=== PATIENT | male | born 1960 | race Caucasian/White ===

== ENCOUNTER → 2024-02-01 | Outpatient (CLI) | payer SELFPAY ==
[2024-02-01 09:18] LABS: BASOPHILS ABSOLUTE AUTO 0.07 K/mm3 (0.00-0.23); BASOPHILS PERCENT AUTO 1 % (0-2); EOSINOPHILS ABSOLUTE AUTO 0.08 K/mm3 (0.00-0.68); EOSINOPHILS PERCENT AUTO 1 % (0-6); Hematocrit 44.2 % (37.0-53.0); IMMATURE GRAN ABSOLUTE AUTO 0.02 K/mm3 (0.00-0.10); IMMATURE GRAN PERCENT AUTO 0 % (0-1); LYMPHOCYTES ABSOLUTE AUTO 1.29 K/mm3 (0.84-5.20); LYMPHOCYTES PERCENT AUTO 19 % (21-46); MONOCYTES ABSOLUTE AUTO 0.73 K/mm3 (0.16-1.47); MONOCYTES PERCENT AUTO 11 % (4-13); Mean Corpuscular HGB Conc 33.9 g/dL (31.5-36.5); Mean Corpuscular Volume 91 fL (80-100); NEUTROPHILS ABSOLUTE AUTO 4.55 K/mm3 (1.96-9.15); NEUTROPHILS PERCENT AUTO 68 % (41-73); Platelet Count 265 K/mm3 (150-400); RDW Coefficient Variation 13.3 % (11.7-14.2); RDW Standard Deviation 45.1 fL (35.1-46.3); Red Blood Cell Count 4.84 M/mm3 (4.30-5.90); White Blood Cell Count 6.74 K/mm3 (4.00-11.30)
[2024-02-01 09:40] LABS: Albumin/Globulin Ratio 1.2 (0.8-1.8); Bilirubin, Total 0.6 mg/dL (0.1-1.0); Bun/Creatinine Ratio 18.1 (12.0-20.0); Calcium, Blood 9.3 mg/dL (8.5-10.1); Creatinine, Blood 0.72 mg/dL (0.60-1.20); Globulin, Blood 3.4 g/dL (2.2-4.0); Potassium, Blood 4.4 mmol/L (3.5-5.5); Total Protein, Blood 7.4 g/dL (6.4-8.2); Uric Acid, Blood 7.7 mg/dL (3.5-7.2)
== END ==
LOC: LAB SHORT 08:57
PROVIDERS: Physician Assistant
DX: M13.879 Other specified arthritis, unspecified ankle and foot (principal); R22.43 Localized swelling, mass and lump, lower limb, bilateral
CPT/HCPCS: 80053; 84550; 85025

== ENCOUNTER 2024-07-10 08:30 | Day surgery (SDC) | payer BC ==
[~2024-07-10] VITALS: Ht 185.4 cm; Wt 82.7 kg
[~2024-07-10 08:30] MED LIST: Lactated Ringer's 1,000 ML IV ONE; propofoL 50 ML IV ONE
[2024-07-10] MEDS ORDERED: Lactated Ringer's 1,000 ML IV ONE (09:26)
== END 2024-07-10 10:39 | disposition home or self-care (01) ==
LOC: ORSCSDS 08:30
PROVIDERS: Specialist
PROC: 0DBP8ZX Excision of Rectum, Via Natural or Artificial Opening Endoscopic, Diagnostic (ICD-10-PCS; principal; 2024-07-10 09:30)
DX: Z12.11 Encounter for screening for malignant neoplasm of colon (principal); K62.1 Rectal polyp; K64.8 Other hemorrhoids; F17.210 Nicotine dependence, cigarettes, uncomplicated
CPT/HCPCS: 88305; J2704; J7120

== ENCOUNTER 2024-12-09 06:11 | Emergency (ER) | payer BC ==
[~2024-12-09] VITALS: Ht 182.9 cm; Wt 83.9 kg
[2024-12-09] MEDS ORDERED: Ketorolac Tromethamine 15mg Vial IM ONE (07:35)
== END 2024-12-09 10:20 | disposition home or self-care (01) ==
LOC: ER 06:11
DX: M54.32 Sciatica, left side (principal); Z88.7 Allergy status to serum and vaccine
CPT/HCPCS: 72100; 73562-LT; 93971; 96372; 99284-25; J1885